=== PATIENT | female | born 1970 | race Caucasian/White ===

== ENCOUNTER → 2020-10-01 | Day surgery (SDC) | payer OTHER ==
[~2020-10-01] MED LIST: ACTOS30 MG PO; ATIVAN1 M1 PO; BYDUREON B2 MG/0.85 SC; CLARITIN10 MG PO; LIPITOR 10MG TA10 MG PO; LISINOPRIL40 MG PO; NEURONTIN300 MG PO; OXYCODONE PO; PROTONIX 40MG T40 MG PO; TRESIBA100 UNIT/1 SC
[2020-10-01 11:39] LABS: BASOPHIL 1.1 % (0-2); HGB 15.4 g/dl (12.5-16.0); LYMPHOCYTE 36.4 % (15-48); MCHC 32.8 g/dL (32.0-36.0); MCV 100.9 fL (78.0-100.0); MONOCYTE 7.6 % (0-12); MPV 10.3 fL (6.0-9.5); NEUTROPHIL 52.5 % (41-80); NRBC 0; PLT 172 K/uL (150-400); RBC 4.66 M/uL (4.20-5.40); RDW 13.8 % (11.5-14.0); WBC 5.6 K/uL (4.0-10.5)
[2020-10-01 12:39] LABS: ALBUMIN 3.2 g/dL (3.4-5.0); BILIRUBIN - TOTAL 0.4 mg/dL (0.2-1.0); BUN/CREAT RATIO (CALC) 20.5 RATIO; CREATININE 0.78 mg/dL (0.51-0.95); GLOBULIN (CALCULATION) 3.3 g/dL; POTASSIUM 4.3 mmol/L (3.5-5.1); TOTAL PROTEIN 6.5 g/dL (6.4-8.2)
== END | disposition home or self-care (01) ==
LOC: FAS 10:48
PROVIDERS: Oral & Maxillofacial Surgery
DX: K02.63 Dental caries on smooth surface penetrating into pulp (principal); K05.30 Chronic periodontitis, unspecified; I10 Essential (primary) hypertension; E66.01 Morbid (severe) obesity due to excess calories; E11.9 Type 2 diabetes mellitus without complications; M19.90 Unspecified osteoarthritis, unspecified site; F17.210 Nicotine dependence, cigarettes, uncomplicated; Z86.16 Personal history of COVID-19; Z88.7 Allergy status to serum and vaccine; Z88.8 Allergy status to other drugs, medicaments and biological substances; Z91.013 Allergy to seafood; Z79.899 Other long term (current) drug therapy; Z98.890 Other specified postprocedural states
CPT/HCPCS: 36415; 71045; 80053; 82962; 85025; 93005; J1100; J1170; J1885; J2250; J2405; J2704; J2710; J3010; J7120